=== PATIENT | female | born 2000 | race Hispanic/Latino ===

== ENCOUNTER 2019-12-27 16:40 | Emergency (ER) | payer OTHER ==
[~2019-12-27] VITALS: Ht 144.8 cm; Wt 40.8 kg
[2019-12-27] MEDS ORDERED: HYDROCODONE/APAP 5MG-325MG TAB PO NR (17:15)
[2019-12-27 17:31] LABS: CLARITY,URINE CLEAR (CLEAR); COLOR,URINE YELLOW (YELLOW); LEUKOCYTE ESTERASE ,URINE NEGATIVE (NEGATIVE); NITRITE,URINE NEGATIVE (NEGATIVE); PROTEIN,URINE DIPSTICK 1+ (NEGATIVE)
[2019-12-27 17:32] LABS: BILIRUBIN,URINE NEGATIVE (NEGATIVE); KETONES,URINE NEGATIVE (NEGATIVE); URINE UROBILINOGEN 0.2 mg/dL (0.2 - 1)
[2019-12-27 17:34] LABS: PREGNANCY TEST, URINE NEGATIVE (NEGATIVE)
[2019-12-27 17:43] LABS: RBC,URINE 21-50 /HPF (0-5)
[2019-12-27 17:44] LABS: BACTERIA,URINE MANY /HPF; EPITHELIAL CELLS,URINE MODERATE /LPF
--- NOTE | 2019-12-27 18:02 | Emergency Department Note ---
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 Patient denies constipation, diarrhea or vomiting, but states she was nauseous. Patient states that she had intercourse prior to the start of the abdominal pain. 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 Any updates have been documented here. Past Medical History Recent Fever: No Clinical Suspicion of Infectio: No New/Unexplained Change in Ment: No Past Medical History: None Other Medical History: ovarian cyst Past Surgical History: None Social History Smoking Cessation: Never Smoker Counseling Performed: No Alcohol Use: None Any Illegal Drug Use: No TB Exposure/Symptoms: No Physically hurt or threatened: No Family History Family history of heart diseas: No Other Last Tetanus: UTD Any Pre-Existing Lines (PICC,: No Is patient up to date on immun: No Last Flu: utd Last Pneumovax: n/a Review of Systems Review of Systems Constitutional: Reports no symptoms EENTM: Reports no symptoms Cardiovascular: Reports no symptoms Respiratory: Reports no symptoms Gastrointestinal: Reports as per HPI, Reports abdominal pain Genitourinary: Reports no symptoms Musculoskeletal: Reports no symptoms Integumentary: Reports no symptoms Neurological: Reports no symptoms Psychological: Reports no symptoms Endocrine: Reports no symptoms Hematological/Lymphatic: Reports no symptoms Physical Exam Related Data Allergies: Coded Allergies: No Known Allergies (Unverified , 12/27/19) Triage Vital Signs Vital Signs Date Time Temp Pulse Resp B/P (MAP) Pulse Ox O2 Delivery O2 Flow Rate FiO2 12/27/19 16:42 12/27/19 17:01 99.1 93 18 100 Vital signs reviewed: Yes Physical Exam CONSTITUTIONAL Constitutional: Present well-developed, Present well-nourished HENT HENT: Present normocephalic, Present atraumatic, Present oropharynx clear/moist, Present nose normal HENT L/R: Present left ext ear normal, Present right ext ear normal EYES Eyes: Reports PERRL, Reports conjunctivae normal NECK Neck: Present ROM normal PULMONARY Pulmonary: Present effort normal, Present breath sounds normal CARDIOVASCULAR Cardiovascular: Present regular rhythm, Present heart sounds normal, Present capillary refill normal, Present normal rate GASTROINTESTINAL Abdominal: Present soft, Present bowel sounds normal, Present tender (very minimal tenderness suprapubic, no rebound/gaurding); Absent left CVA tenderness, Absent right CVA tenderness GENITOURINARY Genitourinary: Present exam deferred SKIN Skin: Present warm, Present dry MUSCULOSKELETAL Musculoskeletal: Present ROM normal NEUROLOGICAL Neurological: Present alert, Present oriented x 3, Present no gross motor or sensory deficits PSYCHOLOGICAL Psychological: Present mood/affect normal, Present judgement normal Results Laboratory Laboratory Laboratory Tests Test 12/27/19 17:07 Urine Color Yellow (YELLOW) Urine Clarity Clear (CLEAR) Urine pH 6 (5 - 7) Urine Specific Perkins >=1.030 (1.010-1.025) Urine Protein 1+ (NEGATIVE) Urine Glucose (UA) Negative (NEGATIVE) Urine Ketones Negative (NEGATIVE) Urine Blood Trace (NEGATIVE) Urine Nitrite Negative (NEGATIVE) Urine Bilirubin Negative (NEGATIVE) Urine Urobilinogen 0.2 mg/dL (0.2 - 1) Urine Leukocyte Esterase Negative (NEGATIVE) Urine RBC 21-50 /HPF (0-5) Urine WBC 6-10 /HPF (0-5) Urine Epithelial Cells Moderate /LPF (NONE) Urine Bacteria Many /HPF (NONE) Urine Test Negative (NEGATIVE) Lab results reviewed: Yes Assessment & Plan Medical Decision Making MDM check ua, upt - r/o uti, Reassessment Reassessment dc home, ceftin/zofran Assessment & Plan Final Impression: (1) UTI (urinary tract infection) Depart Disposition: HOME, SELF-CARE Last Vital Signs Date Time Temp Pulse Resp B/P (MAP) Pulse Ox O2 Delivery O2 Flow Rate FiO2 12/27/19 17:01 99.1 93 18 102/69 100 Medications in the ED Acetaminophen/ Hydrocodone Bitart 1 ea ONCE PO Last administered on 12/27/19at 17:26; Admin Dose 1 EA; Start 12/27/19 at 17:15; Stop 12/27/19 at 17:45; Status DC SWEET,LAIRD A MD Dec 27, 2019 18:02
== END 2019-12-27 18:35 | disposition home or self-care (01) ==
LOC: ER 16:43
DX: R10.32 Left lower quadrant pain (principal); N39.0 Urinary tract infection, site not specified; R11.0 Nausea
CPT/HCPCS: 81001; 81025; 87086; 99283

== ENCOUNTER 2020-10-28 22:20 | Emergency (ER) | payer OTHER ==
[~2020-10-28] VITALS: Ht 144.8 cm; Wt 40.8 kg
[2020-10-28] MEDS ORDERED: ACETAMIN/BUTALBITAL/CAFFEINE TAB PO ONE (22:30)
[2020-10-28] MEDS ORDERED: ACETAMIN/BUTALBITAL/CAFFEINE TAB ONE (22:41)
[2020-10-28 22:45] LABS: AMPHETAMINES SCREEN,URINE NEGATIVE (NEGATIVE); BENZODIAZEPINES SCREEN,URINE NEGATIVE (NEGATIVE); CLARITY,URINE CLOUDY (CLEAR); COLOR,URINE YELLOW (YELLOW); KETONES,URINE NEGATIVE (NEGATIVE); LEUKOCYTE ESTERASE ,URINE TRACE (NEGATIVE); NITRITE,URINE NEGATIVE (NEGATIVE); PHENCYCLIDINE SCREEN,URINE NEGATIVE (NEGATIVE); PROTEIN,URINE DIPSTICK NEGATIVE (NEGATIVE); URINE UROBILINOGEN 0.2 mg/dL (0.2 - 1)
[2020-10-28 22:48] LABS: AMORPHOUS SEDIMENT,URINE MANY (FEW); BACTERIA,URINE FEW /HPF; EPITHELIAL CELLS,URINE RARE /LPF; RBC,URINE 0-5 /HPF (0-5)
[2020-10-28] MEDS ORDERED: KETOROLAC TROMETHAMINE 30 MG/ML VIAL IV STA (23:51)
[2020-10-29] MEDS ORDERED: CEFTRIAXONE SOD 1 GM/50 ML BAG IV ONE
[2020-10-29] MEDS ORDERED: DIPHENHYDRAMINE HCL INJ 50 MG/ML VIAL IV ONE
[2020-10-29] MEDS ORDERED: SODIUM CHLORIDE 0.9% 1000ML 1,000 ML IV ONE
[2020-10-29] MEDS ORDERED: CEFTRIAXONE SOD 1 GM VIAL ONE (00:05)
[2020-10-29] MEDS ORDERED: CEFTRIAXONE SOD 1 GM in SODIUM CHLORIDE 0.9% 50ML 50 ML IV ONE (00:15)
== END 2020-10-29 00:46 | disposition home or self-care (01) ==
LOC: ER 22:25
DX: R51.9 Headache, unspecified (principal); N39.0 Urinary tract infection, site not specified
CPT/HCPCS: 70450; 80307; 81001; 81025; 99283; J0696; J1200; J1885; J7030